=== PATIENT | female | born 2005 | race African-American/Black ===

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

== ENCOUNTER 2025-04-21 21:00 | Emergency (ER) | payer BC, SELFPAY ==
[2025-04-21 21:37] LABS: #Basophils 0.07 10x3/uL (0.0-0.2); #Eosinophils 0.10 10x3/uL (0.0-0.5); #Monocytes 0.53 10x3/uL (0.0-1.1); #Neutrophils 4.69 10x3/uL (1.5-8.4); %Basophils 0.9 % (0.0-2.0); %Eosinophils 1.3 % (0.0-6.0); %Lymphocytes 28.9 % (18.0-47.0); %Monocytes 7.0 % (0.0-10.0); %Neutrophils 61.6 % (40.0-75.0); Hematocrit 42.9 % (34.9-44.5); Hemoglobin 14.0 g/dL (12.0-15.5); Mean Corpuscular Hemoglobin 27.5 pg (27.0-33.0); Mean Corpuscular Volume 84.1 fL (81.6-98.3); Platelet Count 413 10x3/uL (150-450); Red Blood Cell (RBC) Count 5.10 10x6/uL (3.90-5.03); White Blood Cell (WBC) Count 7.61 10x3/uL (3.5-10.5)
[2025-04-21] MEDS ORDERED: Metoclopramide HCl 10 MG (2 mL) VIAL ONE (21:43)
[2025-04-21] MEDS ORDERED: diphenhydrAMINE 50 MG/ML VIAL ONE (21:43)
[2025-04-21 22:03] LABS: ALT (SGPT) 10 U/L (Less than 34); AST (SGOT) 26 U/L (11-34); Albumin 4.5 g/dL (3.1-4.5); Alkaline Phosphatase 69 U/L (40-100); Anion Gap 12 mmol/L (10-20); BUN (Urea Nitrogen) 12 mg/dL (8.4-21.0); Bilirubin, Total 0.2 mg/dL (0.3-1.2); Calc. Creatinine Clearance 0 mL/min (70-130); Calcium 10.1 mg/dL (7.8-10.44); Carbon Dioxide 22 mmol/L (22-29); Chloride 109 mmol/L (98-107); Globulin 3.1 g/dL (2.4-3.5); Glucose 72 mg/dL (70-105); Lipase 36 U/L (8-78); Potassium 3.9 mmol/L (3.5-5.1); Sodium 139 mmol/L (136-145)
[2025-04-21 22:04] LABS: Glucose, Urine (Dipstick) Normal (Negative); Leukocyte 500 (Negative); Protein, Urine (Dipstick) 30 mg/dl (Neg-Trace); Specific Gravity, Urine 1.010 (1.005-1.030)
[2025-04-21 22:07] LABS: BHCG - Serum Negative (NEGATIVE); Pregs Control Background? CLEAR/WHITE (CLR/WHITE); Pregs Control Bar Appear? YES (CONTROL BAR)
[2025-04-21 22:10] LABS: Bacteria/HPF None Seen HPF (None Seen); CAUTI Indications for Culture Dysuria,urgency,freq; WBC/HPF Greater than 50 HPF (0-3)
[2025-04-21 22:11] LABS: Urine Culture Reflex Yes Yes
== END 2025-04-21 23:18 | disposition home or self-care (01) ==
LOC: CSHERS 21:00
DX: N39.0 Urinary tract infection, site not specified (principal)
CPT/HCPCS: 74177; 80053; 81001; 83690; 84703; 85025; 87086; 96374; 96375; J1200; J2765